=== PATIENT | male | born 1945 | race Caucasian/White ===

== ENCOUNTER 2017-03-04 07:01 | Day surgery (SDC) | payer BC ==
[~2017-03-04] VITALS: Ht 167.6 cm; Wt 79.4 kg
[~2017-03-04 07:01] MED LIST: ARAVA10 MG PO; ASPIR 8181 M1 PO; CALCIUM 500 MG1 EACH PO; CARDIZEM CD120 MG PO; DAYPRO600 MG PO; MEN'S MULTI-VI1 EACH PO; METHOTREXATE2.5 MG PO; PLAQUENIL200 MG PO; PRILOSEC20 MG PO; RAYOS5 MG PO
[2017-03-04 09:00] LABS: APPEARANCE CLEAR ((CLEAR)); BILIRUBIN NEGATIVE; BLOOD NEGATIVE; COLOR YELLOW ((YELLOW)); GLUCOSE (STRIP) NEGATIVE; KETONES NEGATIVE; LEUKOCYTES NEGATIVE; NITRITE NEGATIVE; PROTEIN (STRIP) NEGATIVE; SPECIFIC GRAVITY 1.012 (1.000-1.030); UROBILINOGEN 0.2 MG/DL (0.2-1.0)
[2017-03-04 09:02] VITALS: BP 199/97
[2017-03-04 09:04] LABS: HEMATOCRIT 45.3 % (38.0-50.0); HEMOGLOBIN 15.1 G/DL (12.5-16.6); MCH 32.2 PG (29.0-34.0); MCHC 33.3 G/DL (30.0-36.0); MCV 96.6 FL (86-99); PLATELET COUNT 295 K/uL (156-360); RBC DIS.WIDTH-SD 58.7 % (39-53); RED BLOOD COUNT 4.69 M/uL (4.00-5.50); WHITE BLOOD COUNT 10.3 K/uL (4.1-10.2)
[2017-03-04 09:36] LABS: CHLORIDE 107 MEQ/L (99-109); CREATININE 0.9 MG/DL (0.6-1.3); GFR ESTIMATE (CALCULATED) > 59 mL/min/ (58.99-99999); GLUCOSE 89 mg/dL (70-99); POTASSIUM 4.4 MEQ/L (3.7-5.4); SODIUM 141 MEQ/L (136-147); UREA NITROGEN (BUN) 16 mg/dL (9-23)
[2017-03-04 13:38] VITALS: BP 161/74
[2017-03-04 14:44] VITALS: BP 192/82
== END 2017-03-04 14:55 | disposition home or self-care (01) ==
LOC: SDC 07:01
PROVIDERS: Neurological Surgery
DX: M51.16 Intervertebral disc disorders with radiculopathy, lumbar region (principal); M47.26 Other spondylosis with radiculopathy, lumbar region; M48.061 Spinal stenosis, lumbar region without neurogenic claudication; R53.1 Weakness; Z98.1 Arthrodesis status; I10 Essential (primary) hypertension; M06.9 Rheumatoid arthritis, unspecified; Z79.82 Long term (current) use of aspirin; Z79.899 Other long term (current) drug therapy
CPT/HCPCS: 72020; 72120; 76000; 80048; 81003; 85027; 93005; J0330; J0690; J1100; J2405; J3010; S0020